=== PATIENT | female | born 1970 ===

== ENCOUNTER 2017-03-17 08:56 | Emergency (ER) | payer OTHER ==
[2017-03-17 09:00] VITALS: BMI 24.0
[2017-03-17] MEDS ORDERED: Sodium Chloride 0.9% 1,000 ML IV ONE (09:22)
--- NOTE | 2017-03-17 09:28 | C.PDOC ---
History Of Present Illness 46 y/o female presents to the ED for evaluation of diarrhea associated with crampy abdominal pain since yesterday. States she had multiple episodes of diarrhea with liquid stools, no blood in stool. Denies any nausea, vomiting, urinary symptoms, or fever. Time Seen by Provider: 03/17/17 09:02 Chief Complaint (Nursing): Abdominal Pain History Per: Patient History/Exam Limitations: no limitations Onset/Duration Of Symptoms: Days (1) Current Symptoms Are (Timing): Still Present Location Of Pain/Discomfort: Diffuse Radiation Of Pain To:: None Quality Of Discomfort: Cramping Associated Symptoms: Diarrhea. denies: Fever, Chills, Nausea, Vomiting, Loss Of Appetite, Back Pain, Chest Pain, Constipation, Urinary Symptoms Exacerbating Factors: None Alleviating Factors: None Last Bowel Movement: Today Recent travel outside of the [place]: No Additional History Per: Patient Abnormal Vaginal Bleeding: No Past Medical History Reviewed: Historical Data, Nursing Documentation, Vital Signs Vital Signs: Last Vital Signs Temp 98.2 F 03/17/17 10:35 Pulse 70 03/17/17 10:35 Resp 16 03/17/17 10:35 BP 99/67 L 03/17/17 10:35 Pulse Ox 100 03/17/17 10:35 Surgical History: Appendectomy, Cholecystectomy Family History: States: Unknown Family Hx - Social History Hx Alcohol Use: Yes Hx Substance Use: No - Immunization History Hx Tetanus Toxoid Vaccination: No Hx Influenza Vaccination: No Hx Pneumococcal Vaccination: No Review Of Systems Except As Marked, All Systems Reviewed And Found Negative. Constitutional: Negative for: Fever, Chills Gastrointestinal: Positive for: Abdominal Pain, Diarrhea. Negative for: Nausea , Vomiting, Constipation, Melena, Hematochezia, Rectal Pain Genitourinary: Negative for: Dysuria, Frequency, Incontinence, Hematuria Musculoskeletal: Negative for: Back Pain Physical Exam - Physical Exam Appears: Non-toxic, No Acute Distress Skin: Normal Color, Warm, Dry Head: Atraumatic, Normacephalic Oral Mucosa: Moist Neck: Normal ROM, Supple Cardiovascular: Rhythm Regular, No Murmur Respiratory: Normal Breath Sounds, No Rales, No Rhonchi, No Wheezing Gastrointestinal/Abdominal: Soft, Tenderness (mild diffuse), No Distention, No Guarding, No Rebound Extremity: Normal ROM Neurological/Psych: Oriented x3, Normal Speech ED Course And Treatment - Laboratory Results Result Diagrams: 03/17/17 09:36 03/17/17 09:36 Lab Interpretation: Normal O2 Sat by Pulse Oximetry: 97 (RA) Pulse Ox Interpretation: Normal Progress Note: Blood work, urinalysis ordered and reviewed. Patient was given IV fluids, and Bentyl. On re-evaluation abdomen soft nontender, feeling better Reassessment Condition: Improved Disposition Counseled Patient/Family Regarding: Studies Performed, Diagnosis, Need For Followup - Disposition Referrals: [facility] [Outside] 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 - Scribe Statement The provider has reviewed the documentation as recorded by the Scribtaz Weeks All medical record entries made by the Rochelleibtaz were at my direction and personally dictated by me. I have reviewed the chart and agree that the record accurately reflects my personal performance of the history, physical exam, medical decision making, and the department course for this patient. I have also personally directed, reviewed, and agree with the discharge instructions and disposition.
[2017-03-17] MEDS ORDERED: Sodium Chloride 0.9% 1,000 ML ONE (09:35)
[2017-03-17 09:40] LABS: BASO % 0.4 % (0.0-2.0); EOS # 0.2 K/uL (0.0-0.7); EOS % 1.4 % (0.0-4.0); HEMATOCRIT 39.6 % (34.0-47.0); LYMPH # 1.1 K/uL (1.0-4.3); LYMPH % 10.2 % (20.0-40.0); MEAN CORPUSCULAR HEMOGLOBIN 29.8 pg (27.0-31.0); MEAN CORPUSCULAR HGB CONC 33.3 g/dL (33.0-37.0); MEAN PLATELET VOLUME 9.8 fL (7.2-11.7); MONO # 0.8 K/uL (0.0-0.8); MONO % 7.9 % (0.0-10.0); RED CELL DISTRIBUTION WIDTH 13.1 % (11.5-14.5); WHITE BLOOD COUNT 10.8 K/uL (4.8-10.8)
[2017-03-17 09:42] LABS: MEAN CELL VOLUME 89.5 fL (81.0-99.0)
[2017-03-17 09:47] LABS: CHLORIDE 100 mmol/L (98-107)
[2017-03-17 09:48] LABS: POTASSIUM 3.9 mmol/L (3.6-5.2); RBC URINE 2 /hpf (0-3); SODIUM 138 mmol/L (132-148); URINE BACTERIA RARE (<OCC); URINE BILIRUBIN NEGATIVE (NEGATIVE); URINE BLOOD 1+ (NEGATIVE); URINE COLOR YELLOW (YELLOW); URINE GLUCOSE (UA) NORMAL (Normal); URINE KETONE NEGATIVE (NEGATIVE); URINE LEUKOCYTE ESTERASE NEG Leu/uL (Negative); URINE PROTEIN 1+ mg/dL (NEGATIVE); URINE UROBILINOGEN NORMAL mg/dL (0.2-1.0); WBC URINE 4 /hpf (0-5)
[2017-03-17 09:50] LABS: ALB/GLOB RATIO 1.2 (1.0-2.1); ALKALINE PHOSPHATASE 78 U/L (38-126); ALT/SGPT 27 U/L (9-52); AST/SGOT 17 U/L (14-36); BILIRUBIN,TOTAL 0.8 mg/dL (0.2-1.3); BLOOD UREA NITROGEN 14 mg/dL (7-17); CARBON DIOXIDE 25 mmol/L (22-30); GFR AFRICAN-AMERICAN > 60; GLUCOSE,RANDOM 111 mg/dL (65-105)
[2017-03-17 09:51] LABS: CALCIUM 8.3 mg/dl (8.6-10.4)
[2017-03-17 10:36] VITALS: BP 99/67; PULSE 70; RESP 16; TEMP 98.2
[2017-03-17 14:33] VITALS: O2SAT 97
== END 2017-03-17 10:42 | disposition home or self-care (01) ==
LOC: C.ER 08:56
DX: R19.7 Diarrhea, unspecified (principal)
CPT/HCPCS: 80053; 81001; 83690; 84703; 85025; 96360; 96372; 99285; J0500; J7040

== ENCOUNTER 2018-07-20 20:22 | Emergency (ER) | payer SELFPAY ==
[2018-07-20 20:22] VITALS: BMI 23.0
[2018-07-20 20:31] VITALS: BP 109/74; PULSE 80; TEMP 98.9; O2SAT 96
--- NOTE | 2018-07-20 21:08 | C.PDOC ---
History Of Present Illness 47 year old female presents to the ED c/o itchy rash to her bilateral thighs extending down to lower legs for the past 3 days. Patient reports symptoms started after using a new shaving cream. Patient denies fever, chills, nausea, vomit, facial swelling, lip swelling, SOB, wheezing. Time Seen by Provider: 07/20/18 20:37 Chief Complaint (Nursing): Abnormal Skin Integrity History Per: Patient History/Exam Limitations: no limitations Onset/Duration Of Symptoms: Days (3) Current Symptoms Are (Timing): Still Present Location Of Injury: Right: Leg, Left: Leg Quality Of Symptoms: Itching Recent travel outside of the [place]: No Additional History Per: Patient Past Medical History Reviewed: Historical Data, Nursing Documentation, Vital Signs Vital Signs: Last Vital Signs Temp 98.9 F 07/20/18 20:27 Pulse 80 07/20/18 20:27 Resp 16 07/20/18 20:27 BP 109/74 07/20/18 20:27 Pulse Ox 96 07/20/18 20:27 - Medical History PMH: No Chronic Diseases Surgical History: Appendectomy, Cholecystectomy Family History: States: Unknown Family Hx - Social History Hx Alcohol Use: No Hx Substance Use: No - Immunization History Hx Tetanus Toxoid Vaccination: No Hx Influenza Vaccination: No Hx Pneumococcal Vaccination: No Review Of Systems Constitutional: Negative for: Fever, Chills ENT: Negative for: Mouth Swelling, Throat Swelling Respiratory: Negative for: Shortness of Breath, Wheezing Gastrointestinal: Negative for: Nausea, Vomiting Musculoskeletal: Negative for: Leg Pain Skin: Positive for: Rash Physical Exam - Physical Exam Appears: Non-toxic, No Acute Distress Skin: Warm, Dry, Rash (macular/papular eryhtematous rash to inner thighs extending down to lower legs. No vesicles ) Head: Atraumatic, Normacephalic Eye(s): bilateral: Normal Inspection Oral Mucosa: Moist Tongue: No Swelling Lips: No Swelling Throat: Normal, No Erythema, No Exudate Neck: Normal ROM, Supple Chest: Symmetrical Cardiovascular: Rhythm Regular Respiratory: Normal Breath Sounds, No Rales, No Rhonchi, No Wheezing Extremity: Normal ROM, No Tenderness, Capillary Refill (< 2 seconds), No Swelling Neurological/Psych: Oriented x3, Normal Speech, Normal Cognition Gait: Steady ED Course And Treatment O2 Sat by Pulse Oximetry: 96 (ON RA) Pulse Ox Interpretation: Normal Progress Note: Plan: - Benadryl 50 mg PO. - Prednisone 40 mg PO. Patient is resting comfortably, tolerating PO, has no shortness of breath, has no intra- oral swelling, no stridor. Patient notes that pruritus has improved.. Patient was advised to avoid potential allergens, and to follow up with physician in 1-2 days Disposition Counseled Patient/Family Regarding: Diagnosis, Need For Followup - Disposition Referrals: [facility] [Outside] Disposition: HOME/ ROUTINE Disposition Time: 21:05 Condition: STABLE Additional Instructions: Please follow up with PMD [facility] la crema de hydrocortisone Return to ER if worse Prescriptions: DiphenhydrAMINE [Benadryl] 50 mg PO Q6H #20 cap predniSONE [Prednisone] 40 mg PO DAILY #8 tab Instructions: Contact Dermatitis (DC) Forms: [employer] (Greek) Print Language: JAPANESE - Clinical Impression Clinical Impression: Allergic contact dermatitis - 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 - Scribe Statement The provider has reviewed the documentation as recorded by the Scribe Quincy Hernandez All medical record entries made by the Rochelleibtaz were at my direction and person ally dictated by me. I have reviewed the chart and agree that the record accurately reflects my personal performance of the history, physical exam, medical decision making, and the department course for this patient. I have also personally directed, reviewed, and agree with the discharge instructions and disposition.
[2018-07-20 21:17] VITALS: RESP 20
== END 2018-07-20 21:16 | disposition home or self-care (01) ==
LOC: C.ER 20:22
DX: L23.9 Allergic contact dermatitis, unspecified cause (principal)